=== PATIENT | male | born 1990 | race Caucasian/White ===

== ENCOUNTER 2023-05-01 10:23 | Outpatient (CLI) | payer BC, SELFPAY ==
--- NOTE | ~2023-05-01 | XR_ITS ---
Thoracic spine: Clinical Indication: Back pain AP and lateral views were performed. No fracture is seen. There is normal alignment of the vertebrae. The intervertebral disc spaces appe ar normal. Paravertebral soft tissues appear normal. Impression: No significant abnormalities noted. Reviewed, dictated and finalized at [facility]. Impression: No significant abnormalities noted.
--- NOTE | ~2023-05-01 | XR_ITS ---
Lumbosacral Spine: AP and lateral views Clinical History: Pain Findings: The normal lordotic curve is maintained. The vertebral bodies and posterior elements are i ntact. There is mild to moderate degenerative disc narrowing L5-S1. The sacroiliac joints are normal ly outlined. Impression: Mild to moderate degenerative disc narrowing at L5-S1. Reviewed, dictated and finalized at [facility]. Impression: Mild to moderate degenerative disc narrowing at L5-S1.
== END 2023-05-01 10:24 | disposition home or self-care (01) ==
PROVIDERS: PCP Nurse Practitioner Family; Visit Provider Nurse Practitioner Family
DX: M54.6 Pain in thoracic spine (principal); M54.50 Low back pain, unspecified; G89.29 Other chronic pain
CPT/HCPCS: 72070; 72100

== ENCOUNTER → 2023-07-22 15:39 | Outpatient (CLI) | payer BC, SELFPAY ==
--- NOTE | ~2023-07-22 | XR_ITS ---
Cervical Spine: AP, lateral, open-mouth views Clinical History: Pain Findings: There is mild straightening of the normal cervical lordosis. The vertebral bodies and post erior elements appear intact. The intervertebral disc spaces are well maintained. Pre-vertebral soft tissues are unremarkable. Impression: Mild straightening of the normal cervical lordosis, otherwise unremarkable exam. Reviewed, dictated and finalized at [facility]. [employer] Impression: Mild straightening of the normal cervical lordosis, otherwise unremarkable exam .
== END ==
PROVIDERS: PCP Nurse Practitioner Family; Visit Provider Nurse Practitioner Family
DX: M54.2 Cervicalgia (principal); G89.29 Other chronic pain
CPT/HCPCS: 72040

== ENCOUNTER 2024-01-28 12:34 | Outpatient (CLI) | payer BC, SELFPAY ==
--- NOTE | ~2024-01-28 | MR_ITS ---
EXAMINATION: MR thoracic spine wo con DATE: 01/28/2024 13:21 INDICATION: Back pain. Neck pain. TECHNIQUE: Magnetic resonance imaging (MRI) of the thoracic spine was performed without intravenous c ontrast. COMPARISON: Thoracic spine radiographs 05/01/2023 FINDINGS: Bone alignment is normal. Vertebral body heights are normal. Intervertebral disc heights ar e normal. At T3-T4, there is a central extrusion with mild central canal stenosis. There is multileve l mild facet joint osteoarthritis. No neural foraminal stenosis or central canal stenosis. There is s yringohydromyelia from T7 to T9 with maximum diameter of 1 mm. IMPRESSION: 1. 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 2. Mild thoracic spondylosis. Reviewed, dictated and finalized at location [facility].
--- NOTE | ~2024-01-28 | MR_ITS ---
EXAMINATION: MR cervical spine wo con DATE: 01/28/2024 13:07 INDICATION: Neck pain. TECHNIQUE: Magnetic resonance imaging (MRI) of the cervical spine was performed without intravenous c ontrast. Sequences included sagittal T2-weighted FSE, sagittal T2-weighted FS FSE, sagittal T1-weight ed FSE, axial MERGE, and axial T2-weighted FSE. COMPARISON: Cervical spine radiographs 07/22/2023 FINDINGS: There is hypolordosis and 4 degrees dextrocurvature of cervical spine. Vertebral body heigh ts are normal. There is mildly decreased disc height at C5-C6 and C6-C7. The spinal cord signal inten sity is normal. The following disc levels are specifically discussed: C2-C3: The disc does not extend beyond the endplate margin. There is mild left uncovertebral joint os teoarthritis. There is mild bilateral facet joint osteoarthritis. There is no neural foraminal stenos is. There is no central canal stenosis. C3-C4: There is a central protrusion. There is mild bilateral uncovertebral joint osteoarthritis. The re is mild bilateral facet joint osteoarthritis. There is mild bilateral neural foraminal stenosis. T here is no central canal stenosis. C4-C5: The disc does not extend beyond the endplate margin. There is mild bilateral uncovertebral donnell nt osteoarthritis. There is mild bilateral facet joint osteoarthritis. There is mild left neural fora ninfa stenosis. There is no central canal stenosis. C5-C6: There is a right central protrusion. There is severe right and moderate left uncovertebral donnell nt osteoarthritis. There is mild bilateral facet joint osteoarthritis. There is moderate right and mi ld left neural foraminal stenosis. There is mild central canal stenosis. C6-C7: The disc is bulging. There is mild bilateral uncovertebral joint osteoarthritis. There is mode rate bilateral facet joint osteoarthritis. There is mild bilateral neural foraminal stenosis. There i s no central canal stenosis. C7-T1: There is a central extrusion. There is mild bilateral uncovertebral joint osteoarthritis. Ther e is mild bilateral facet joint osteoarthritis. There is mild bilateral neural foraminal stenosis. Th ere is mild central canal stenosis. IMPRESSION: 1. Moderate spondylosis at C5-C6 and mild spondylosis at other levels. Reviewed, dictated and finalized at location [facility].
== END 2024-01-28 12:35 ==
LOC: MICIMG 12:35
PROVIDERS: PCP Nurse Practitioner Family; Visit Provider Nurse Practitioner Family
DX: G89.29 Other chronic pain (principal); M54.6 Pain in thoracic spine; M54.2 Cervicalgia; Q05.6 Thoracic spina bifida without hydrocephalus; M43.04 Spondylolysis, thoracic region
CPT/HCPCS: 72141; 72146